=== PATIENT | female | born 1970 | race American Indian/Alaskan Native ===

== ENCOUNTER 2017-06-15 06:12 | Inpatient (IN) | payer OTHER ==
--- NOTE | 2017-06-11 12:37 | Anesthesia Consultation ---
Anesthesia Consult and Med Hx Date of service: 06/11/17 - Airway Anesthetic Teeth Evaluation: Good ROM Head & Neck: Adequate Mental/Hyoid Distance: Adequate Mallampati Class: Class II Intubation Access Assessment: Probably Good - Pulmonary Exam CTA: Yes - Cardiac Exam Cardiac Exam: RRR - Pre-Operative Health Status ASA Pre-Surgery Classification: ASA2 Proposed Anesthetic Plan: General - Pulmonary Hx Smoking: No Hx Asthma: Yes (INHALER PRN/LAST USE 06/2016) Hx Sleep Apnea: No - Cardiovascular System Hx Hypertension: Yes - Central Nervous System Hx Psychiatric Problems: No - Other Systems Hx Alcohol Use: No (SOCIALLY) Hx Substance Use: No Hx Cancer: No
[2017-06-11 13:25] LABS: Basophils % (Auto) 0.3 % (0.0-1.8); Hematocrit 35.3 % (30.3-42.9); Hemoglobin 11.5 gm/dl (10.1-14.3); Mean Corpuscular HGB Conc 33 % (30-34); Mean Corpuscular Hemoglobin 27 pg (28-32); Mean Corpuscular Volume 82 fl (79-97); Platelet Count 276 K/mm3 (140-440); Red Blood Count 4.29 M/mm3 (3.65-5.03); Red Cell Distribution Width 14.8 % (13.2-15.2); White Blood Count 5.9 K/mm3 (4.5-11.0)
[2017-06-11 13:42] LABS: Alanine Aminotransferase 11 units/L (7-56); Albumin 3.6 g/dL (3.9-5); Albumin/Globulin Ratio 1.2 %; Alkaline Phosphatase 77 units/L (35-129); Anion Gap 13 mmol/L; BUN/Creatinine Ratio 16; Blood Urea Nitrogen 11 mg/dL (7-17); Calcium 8.6 mg/dL (8.4-10.2); Carbon Dioxide 26 mmol/L (22-30); Chloride 104.4 mmol/L (98-107); Glucose 91 mg/dL (65-100); Potassium 3.8 mmol/L (3.6-5.0); Sodium 140 mmol/L (137-145); Total Protein 6.6 g/dL (6.3-8.2)
--- NOTE | 2017-06-14 21:29 | History and Physical Report ---
History of Present Illness Date of examination: 06/14/17 History of present illness: Patient has been reassessed/reevaluated. H&P has been reviewed. No interval changes. This is a 47 years old female who presents with menstrual disorder. The symptoms began 6-12 months ago. She complains of irregular menses, heavy bleeding, dysmenorrhea, clotting and history of fibroids, but denies mid-cycle spotting, history of ovarian cysts, history of thyroid disease, history of PCOS , history of bleeding disorder, lightheadedness, fatigue and cramping. Interval between menses is 25 days and 30 days. Menstrual flow lasts 4 days and > 7 days. The patient also presents with uterine fibroids. She complains of pelvic pressure, menorrhagia and intermenstrual bleeding, but denies abdominal pain, abdominal pressure and pelvic pain. Treatment tried to date includes myomectomy. Patient presently has a mirena Prior to today's visit the patient has had US of pelvis. Patient's symptoms when present disrupts her normal daily activities Patient desires definitive treatment Vital Signs: Patient Profile: 47 Years Old Female LMP: 05/31/2017 Height: 64.25 inches (163.19 cm) Weight: 205 pounds (93.18 kg) BMI: 34.91 Menstrual History: LMP (date): 05/31/2017 Past History : 1 Term Births: 1 Premature Births: 0 Living Children: 1 Para: 1 Mult. Births: 0 Prev : 1 Aborta: 0 Elect. Ab: 0 Spont. Ab: 0 Ectopics: 0 # 1 Delivery date: 10/01/2009 Weeks Gestation: 39 Delivery type: Anesthesia type: spinal Delivery location: [facility] weight: 7 Name: Spenser Anesthesia Complications: negative Abnormal PAP: negative Uterine Anomaly: negative LINNEA Exposure: negative Infertility: negative Infection History HIV Risk Eval: no Hep B Immunized: no TB exposure: no Personal hx. of genital herpes: no Partner hx. of genital herpes: no Hx of STD: chlamydia Current Allergies (reviewed today): MORPHINE (Critical) * DILAUDID (Critical) * OXYCOTIN (Critical) Past Medical History: Hypertension no hx of dvt while taking ocp Past Surgical History: right ankle, lap band (07/10), myomectomy (2009) Gastric Bypass: (02/02/2015) Family History Summary: General Comments - FH: No Family History of DVT/PE on OCP Social History: Patient is ongiong a divorce Patient is single Smoking History: Patient has never smoked. Risk Factors: Smoked Tobacco Use: Never smoker Smokeless Tobacco Use: Never Passive smoke exposure: no Drug use: no HIV high-risk behavior: no Alcohol use: yes Exercise: no Seatbelt use: 100 % Review of Systems General Complains of fatigue. Denies fever, chills, sweats, anorexia, weakness, malaise, weight loss and sleep disorder. Complains of menorrhagia, abnormal vaginal bleeding, pelvic pain and painful periods. Denies vaginal discharge, incontinence, dysuria, hematuria, urinary frequency, amenorrhea, genital sores, decreased libido, painful sex, urinary urgency, hot flashes, vaginal dryness, vaginal itching and vaginal odor. CV Denies chest pains, palpitations, syncope, dyspnea on exertion, orthopnea, PND and peripheral edema. Resp Denies cough, dyspnea at rest, excessive sputum, hemoptysis, wheezing and pleurisy. GI Denies nausea, vomiting, diarrhea, constipation, change in bowel habits, abdominal pain, melena, hematochezia, jaundice, gas/bloating, indigestion/ heartburn, dysphagia and odynophagia. Breast Denies left breast lump, right breast lump, nipple discharge, bloody discharge from nipple, breast pain, abnormal mammogram and breast enlargement. Psych Denies depression, anxiety, irritability and mood swings. Past History Past Medical History: other (See HPI) Past Surgical History: Other (See HPI) Social history: other (See HPI) Family history: other (See HPI) Medications and Allergies Allergies Allergy/AdvReac Type Severity Reaction Status Date / Time acetaminophen [From Percocet] Allergy Rash Verified 06/05/17 11:18 hydromorphone [From Dilaudid] Allergy Rash Verified 06/05/17 11:17 morphine Allergy Rash Verified 06/05/17 11:18 oxycodone [From Percocet] Allergy Rash Verified 06/05/17 11:18 Home Medications Medication Instructions Recorded Confirmed Last Taken Type Ascorbic Acid/Vitamin E/Biotin 1 each PO DAILY 06/05/17 06/05/17 06/13/17 History [Hair Skin Nails-Biotin Gummies] Mv-Mins/Folic Acid/Guarana/Caf 1 each PO DAILY 06/05/17 06/15/17 06/13/17 History [One Daily Tablet] Active Meds: Active Medications Celecoxib (Celebrex) 200 mg PO PREOP NR Stop: 06/15/17 23:59 Famotidine (Pepcid) 20 mg PO PREOP NR Stop: 06/15/17 23:59 Gabapentin (Neurontin) 300 mg PO PREOP NR Stop: 06/15/17 23:59 Sodium Chloride (Nacl 0.9% 1000 Ml) 1,000 mls @ 100 mls/hr IV DIRECT LYNN Midazolam HCl (Versed) 2 mg IV PREOP NR Stop: 06/15/17 23:59 Review of Systems Constitutional: other (See HPI) Exam - Physical Exam Narrative exam: HEENT: normocephalic, no lesions or deformities Skin no ulcers, xanthomas Chest: respiratory effort normal, clear to auscultation Breasts: no masses or nipple discharge CV: regular, normal S1-S2, no murmur, no rub, no gallop Abdomen: obese normal bowel sounds, soft, nontender, no HSM Well healed pfannenstiel scar Healed laparoscopy scars Musculoskeletal: grossly normal ROM in joints, no joint tenderness or muscle weakness Neuro: no gross anomalities Extremities: normal alignment, no joint enlargement, crepitus, masses or tenderness; normal tone and strength 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 Questions answered. Discussed with patient various medical, surgical and radiological therapies common for treatment including myomectomy hysterectomy and uterine artery embolization . She desires myomectomy. Discussed risks and benefits of laparotomy and robotic assisted approaches Patient desires robotic assisted myomectomy Discuss the risks of the surgery including infection, bleeding possibly heavy enough to require a blood transfusion, possible damage to bowel, bladder or ureter. Patient understands that there is a possibility that a hysterectomy maybe indicated for severe bleeding not resoved with conservative measures. Also discussed possible laparotomy. Her questions were answered. Patient understands and desires to proceed (2) Menometrorrhagia Current Visit: Yes Status: Acute Plan to address problem: Secondary to #1 (3) Hypertension Current Visit: Yes Status: Acute Qualifiers: Hypertension type: essential hypertension Qualified Code(s): I10 - Essential (primary) hypertension (4) Anxiety Current Visit: Yes Status: Chronic (5) BMI 34.0-34.9,adult Current Visit: Yes Status: Acute
[~2017-06-15 06:12] MED LIST: MARCAINE 0.25% INFILTRATI ONE; NACL 0.9% IR ONE; NACL 0.9% IV ONE; NACL BACTERIOSTATIC INFILTRATI ONE; Vasostrict IV ONE
[2017-06-15] MEDS: PEPCID PO NR ×2 (06:40→06:45)
[2017-06-15] MEDS ORDERED: VERSED IV NR (07:00)
[2017-06-15] MEDS ORDERED: NEURONTIN PO NR (07:00)
[2017-06-15] MEDS ORDERED: ZOFRAN IV NR (07:00)
[2017-06-15] MEDS ORDERED: NACL 0.9% 1000 ML 1,000 ML IV SCH (07:00)
[2017-06-15] MEDS ORDERED: Vasostrict ONE (07:02)
[2017-06-15] MEDS ORDERED: NACL 0.9% 100 ML ONE (07:02)
[2017-06-15] MEDS ORDERED: MARCAINE 0.25% INFILTRATI ONE (07:31)
[2017-06-15] MEDS ORDERED: XYLOCAINE MPF 2% ONE (07:32)
[2017-06-15] MEDS ORDERED: ZEMURON IV ONE (07:32)
[2017-06-15] MEDS ORDERED: DIPRIVAN 10 MG/ML IV ONE (07:33)
[2017-06-15] MEDS ORDERED: SUBLIMAZE ONE (07:33)
[2017-06-15] MEDS ORDERED: TRANSDERM-SCOP TD NR (08:00)
[2017-06-15] MEDS ORDERED: ACD-A 500 ML IV ONE (08:27)
[2017-06-15] MEDS ORDERED: NEOSPORIN GU IR ONE (08:30)
[2017-06-15] MEDS ORDERED: TORADOL IV PRN (08:39)
[2017-06-15] MEDS ORDERED: MORPHINE IV PRN (08:39)
--- NOTE | 2017-06-15 08:39 | Anesthesia Day of Surgery ---
Anesthesia Day of Surgery - Day of Surgery Patient Examined: Yes Patient H&P Reviewed: Yes Patient is NPO: Yes
[2017-06-15] MEDS ORDERED: DECADRON ONE (08:51)
[2017-06-15] MEDS ORDERED: ANCEF/STERILE WATER 2 GM/20 ML IV NR (09:00)
[2017-06-15] MEDS ORDERED: NEOSTIGMINE ONE (10:10)
[2017-06-15] MEDS ORDERED: ROBINUL ONE (10:10)
[2017-06-15] MEDS ORDERED: ZOFRAN ONE (10:10)
[2017-06-15] MEDS ORDERED: NACL 0.9% 1000 ML 1,000 ML ONE (10:14)
--- NOTE | 2017-06-15 10:42 | Operative Report ---
Operative Report Operative Report: Date of procedure: 06/15/2017 Pre-operative diagnosis: Symptomatic leiomyomata menorrhalgia pelvic pain and dysmenorrhea Post-operative diagnosis: Same plus pelvic adhesive disease and bilateral ovarian cysts Procedure name(s): Robotic-assisted myomectomy with lysis of adhesions and drainage of ovarian cysts bilaterally Surgeon: Flaco Moss MD Psych Sales Specialist: Eliana Dee Anesthesia: Gen. EBL: 50 mL Complications: None Findings: Uterus approximately 10 weeks in size with him the omental adhesions covering the fundus and posteriorly also had omental adhesions between both adnexa and the tubal adhesions posteriorly on the left bilateral hand cyst ovarian cyst the largest leiomyoma was some on the left posterior to her cervix also had small myomas serosa posteriorly and another right posterior myoma. Specimen(s): Myomas and left ovarian cyst wall Procedure: Patient taken operating room where general endotracheal anesthesia was induced difficulty. She was placed in dorsal lithotomy position prepped and draped in usual normal sterile fashion for robotic procedure. The cath was placed in urinary bladder without difficulty speculum placed in the vagina. A medium V care uterine manipulator was placed without any difficulty. Then attention was switched to the patient's abdomen. Supra-umbilical incision was made with a knife. Spread with a hemostat. A 10-12 Trocar was placed in this incision while lifting out anterior abdominal wall under direct visualization. Intra- abdominal cavity was entered without any evidence of internal organ damage. Patient was insufflated approximately 3 and half liters of CO2 gas. Patient's pelvic findings noted above. The patient was perceived to be a candidate for robotic procedure. On either side of the midline trocar placement approximately 8 cm the 8 mm robotic trocars was placed under direct visualization with no signs of internal organ damage. Psych Sales Specialist ports were placed on the right lower quadrant 2 fingerbreadths above the iliac crest 10-12 trocar. A [address] between the camera port and the right robotic arm trocar placed. At this time the da Abelardo robot was that on the patient's left side and normal fashion. At that time I my place under the operating luther. The multiple adhesions were taken down sharply and bluntly with attempt to restore to a normal anatomy. Pitressin was injected into the myoma posterior to the cervix also into the posterior FUNDAL myoma Pitressin was placed in the myometrium under each. Using the cutting the scissors the serosa was some in size over all the myomas myomas were bluntly and sharply taken out of its bed with good hemostasis additional myomas were found so serosa posteriorly left near the junction of the left fallopian tube and fundal on the right each taken out with good hemostasis. The bed where the posterior cervical myoma was removed and did enter into the vagina. This defect was closed with 0V lock Vicryl suture, with good hemostasis. The uterus was then copiously irrigated and found to be hemostatic and Interceed was placed in the posterior surgical sites to prevent future adhesions. The ureters were inspected and found to be functioning normally. All instruments were removed. THE large trocar defects were closed in layers using with 0 Vicryl and 4-0 Vicryl subcutaneously the smaller 8 mm defects were closed subcutaneously with 4 Vicryl. Patient tolerated procedure well and was awakened and operating room and comfortable recovery room in good condition.
[2017-06-15] MEDS ORDERED: SUBLIMAZE IV PRN (10:55)
--- NOTE | 2017-06-15 10:55 | Post Anesthesia Evaluation ---
- Post Anesthesia Evaluation Patient Participated: Yes Airway Patent: Yes Stable Respiratory Function: Yes Nausea/Vomiting: No Temp > 96.8F: Yes Pain Manageable: Yes Adequeate Hydration: Yes Anesthesia Complications: No Block Receding Appropriately: Not Applicable Patient on Ventilator: No
[2017-06-15] MEDS: SUBLIMAZE IV PRN ×2 (11:00→11:17)
[2017-06-15] MEDS ORDERED: NORCO 5/325 PO PRN (12:46)
[2017-06-15] MEDS: D5LR 1,000 ML IV SCH ×2 (13:30→21:35)
[2017-06-15] MEDS: NORCO 5/325 PO PRN ×3 (13:46→23:08)
[2017-06-15] MEDS: BENADRYL PO PRN ×2 (13:47→22:10)
[2017-06-15] MEDS ORDERED: ANCEF/NS 1 GM/50 ML 1 GM/50 ML BAG IV SCH (18:00)
[2017-06-15] MEDS: ceFAZolin 1 GM in NACL 0.9% 20 ML IV SCH (18:58)
[2017-06-15] MEDS: COLACE PO SCH (21:34)
--- NOTE | 2017-06-15 22:51 | Event Note ---
Date: 06/15/17 Day of surgery. Discuss operative findings with patient and questions answered. Patient without fever. . Good urine output. patient complaining of shoulder pain will treat with Narco patient has tolerated it well. We will continue routine postoperative care.
[2017-06-16] MEDS: ceFAZolin 1 GM in NACL 0.9% 20 ML IV SCH (02:35)
[2017-06-16] MEDS: NORCO 5/325 PO PRN ×2 (02:38→10:00)
[2017-06-16] MEDS: BENADRYL PO PRN ×2 (04:10→10:01)
[2017-06-16 04:50] LABS: Hematocrit 32.2 % (30.3-42.9); Hemoglobin 10.6 gm/dl (10.1-14.3)
[2017-06-16] MEDS: COLACE PO SCH (10:01)
--- NOTE | 2017-06-16 11:25 | Discharge Summary ---
Providers - Providers Date of Admission: 06/15/17 10:47 Date of discharge: 06/16/17 Attending physician: JACKELYN CUMMINGS Hospitalization Condition: Good Procedures: Robotic-assisted myomectomy with lysis of adhesions and drainage of ovarian cysts bilaterally Hospital course: POD#1, no complaints, no bleeding, desires d/c home Disposition: DC-01 TO HOME OR SELFCARE - Discharge Diagnoses (1) S/P myomectomy Status: Acute Core Measure Documentation - Palliative Care Palliative Care/ Comfort Measures: Not Applicable - Core Measures Any of the following diagnoses?: none Exam - Constitutional Vitals: Temp Pulse Resp BP Pulse Ox 98.0 F 72 20 115/62 98 06/16/17 09:10 06/16/17 09:10 06/16/17 09:10 06/16/17 09:10 06/16/17 09:10 General appearance: Present: no acute distress - Respiratory Respiratory effort: normal Respiratory: negative: CTA - Cardiovascular Rhythm: regular - Extremities Extremities: no ischemia, No edema - Abdominal General gastrointestinal: Present: soft, non-tender, non-distended, normal bowel sounds - Integumentary Integumentary: Present: clear, warm, dry (incisions c/d/i) - Psychiatric Psychiatric: appropriate mood/affect Plan Activity: other (no sex, no driving, ambulate on property ~1mile a day. Void frequently, use you incentive spirometer ~ every hour while awake. ) Weight Bearing Status: Full Weight Bearing Diet: regular (Drink ~100oz water a day) Wound: open to air, keep clean and dry Special Instructions: no heavy lifting (>25#) Follow up with: DON CHUNG [Other] - 7 Days JACKELYN CUMMINGS MD [Staff Physician] - (As scheduled) Prescriptions: diphenhydrAMINE [Benadryl CAP] 50 mg PO QHS PRN #14 capsule PRN Reason: Itching Ferrous Sulfate [Feosol 325 MG tab] 325 mg PO BID #60 tablet HYDROcodone/APAP 5-325 [[place] 5-325 mg TAB] 1 - 2 each PO Q6H PRN #30 tablet PRN Reason: Pain
[2017-06-16] MEDS ORDERED: Fluarix Quad 2017-2018(36 MOS+ IM ONE (12:00)
[2017-06-16 12:07] VITALS: BP 120/53
== END 2017-06-16 13:00 | disposition home or self-care (01) | DRG 743 ==
LOC: OR 06:12 → OB 10:47
PROVIDERS: ADMIT Obstetrics & Gynecology; ATTEND Obstetrics & Gynecology
PROC: 0UB93ZZ Excision of Uterus, Percutaneous Approach (ICD-10-PCS; 2017-06-15)
PROC: 3E0234Z Introduction of Serum, Toxoid and Vaccine into Muscle, Percutaneous Approach (ICD-10-PCS; principal; 2017-06-16)
DX: N92.0 Excessive and frequent menstruation with regular cycle (principal); D25.1 Intramural leiomyoma of uterus; I10 Essential (primary) hypertension; J45.909 Unspecified asthma, uncomplicated; F41.9 Anxiety disorder, unspecified; Z98.890 Other specified postprocedural states; Z68.34 Body mass index [BMI] 34.0-34.9, adult; Z88.1 Allergy status to other antibiotic agents; Z88.5 Allergy status to narcotic agent; Z23 Encounter for immunization
CPT/HCPCS: 36415; 80053; 84703; 85014; 85018; 85025; 86850; 86900; 86901; 88305; 90686; A4217; C1765; J0690; J1100; J1885; J2250; J2405; J2704; J2710; J3010; J7030; J7121

== ENCOUNTER 2021-01-20 07:35 | Observation (INO) | payer BC, OTHER ==
[2021-01-18 12:22] LABS: BUN/Creatinine Ratio 13; Blood Urea Nitrogen 12 mg/dL (7-17); Calcium 8.5 mg/dL (8.4-10.2); Hemolysis Index 13
[2021-01-18 12:40] LABS: Eosinophils % (Auto) 0.7 % (0.0-4.3); Hematocrit 37.8 % (30.3-42.9); Hemoglobin 12.2 gm/dl (10.1-14.3); Lymphocytes # (Auto) 1.9 K/mm3 (1.2-5.4); Lymphocytes % (Auto) 37.8 % (13.4-35.0); Mean Corpuscular HGB Conc 32 % (30-34); Mean Corpuscular Volume 84 fl (79-97); Monocytes # (Auto) 0.3 K/mm3 (0.0-0.8); Monocytes % (Auto) 6.5 % (0.0-7.3); Platelet Count 270 K/mm3 (140-440); Red Blood Count 4.52 M/mm3 (3.65-5.03); Red Cell Distribution Width 15.3 % (13.2-15.2)
--- NOTE | 2021-01-18 14:59 | Anesthesia Consultation ---
Anesthesia Consult and Med Hx Date of service: 01/20/21 - Airway Anesthetic Teeth Evaluation: Good ROM Head & Neck: Adequate Mental/Hyoid Distance: Adequate Mallampati Class: Class II Intubation Access Assessment: Probably Good - Pulmonary Exam CTA: Yes - Cardiac Exam Cardiac Exam: RRR - Pre-Operative Health Status ASA Pre-Surgery Classification: ASA2 Proposed Anesthetic Plan: General Nerve Block: TAP - Pulmonary Hx Smoking: No Hx Asthma: Yes (no inhaler use in >1yr) Hx Respiratory Symptoms: No - Cardiovascular System Hx Hypertension: No Hx Heart Attack/AMI: No Hx Percutaneous Transluminal Coronary Angioplasty (PTCA): No - Central Nervous System CVA: No - Endocrine Hx Renal Disease: No Hx Liver Disease: No Hx Insulin Dependent Diabetes: No Hx Non-Insulin Dependent Diabetes: No Hx Thyroid Disease: No - Other Systems Hx Obesity: Yes (BMI 37) - Additional Comments Anesthesia Medical History Comments: No hx anesthetic complications. Reports significant itching with opioid pain medications which is improved with benadryl.
--- NOTE | 2021-01-18 17:06 | History and Physical Report ---
History of Present Illness Date of examination: 01/12/21 History of present illness: Patient has been reassessed/reevaluated. H&P has been reviewed. No interval changes. This is a 50 years old female who presents with uterine fibroids and menstrual disorder. She complains of irregular menses, heavy bleeding, dysmenorrhea and cramping, She complains of pelvic pain, pelvic pressure, menorrhagia and intermenstrual bleeding, but denies abdominal pain and abdominal pressure. Treatment tried to date includes control pills, myomectomy and NSAIDs. Prior to today's visit the patient has had US of pelvis.. Interval between menses is 15-20 days. Patient's symptoms when present disrupts her normal daily activities Conservative therapies have failed. Patient desires definitive treatment Vital Signs: Patient Profile: 50 Years Old Female LMP: 12/28/2020 Height: 64.25 inches (163.19 cm) Weight: 220 pounds BMI: 37.47 Temp: 97.9 degrees F BP sittin / 70 (left arm) Menstrual History: LMP (date): 12/28/2020 LMP - Character: normal, Mirena Past History : 1 Term Births: 1 Premature Births: 0 Living Children: 1 Para: 1 Mult. Births: 0 Prev : 1 Aborta: 0 Elect. Ab: 0 Spont. 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 of genital herpes: no Partner hx. of genital herpes: no Hx of STD: chlamydia Current Allergies (reviewed today): MORPHINE (Critical) * DILAUDID (Critical) * OXYCOTIN (Mild) Past Medical History: Hypertension no hx of dvt while taking ocp Fibroids Past Surgical History: Right ankle, lap band (07/10), myomectomy (2009) Gastric Bypass: (02/02/2015) Robotic Myomectomy with ELZBIETA and ovarian cystectomy(06/15/2017) Social History: Smoking History: Patient has never smoked. Risk Factors: Smoked Tobacco Use: Never smoker Smokeless Tobacco Use: Never Passive Smoke Exposure: no Seatbelt Use: 100 % Review of Systems General Complains of fatigue. Denies fever, chills, sweats, anorexia, weakness, malaise, weight loss and sleep disorder. Complains of menorrhagia, pelvic pain, painful periods and painful sex. Denies vaginal discharge, incontinence, dysuria, hematuria, urinary frequency, amenorrhea, abnormal vaginal bleeding, genital sores, decreased libido, urinary urgency, hot flashes, vaginal dryness, vaginal itching and v aginal odor. CV Denies chest pains, palpitations, syncope, dyspnea on exertion, orthopnea, PND and peripheral edema. Resp Denies cough, dyspnea at rest, excessive sputum, hemoptysis, wheezing and pleurisy. GI Denies nausea, vomiting, diarrhea, constipation, change in bowel habits, abdominal pain, melena, hematochezia, jaundice, gas/bloating, indigestion/heartburn, dysphagia and odynophagia. Breast Denies left breast lump, right breast lump, nipple discharge, bloody discha rge from nipple, breast pain, abnormal mammogram and breast enlargement. Psych Complains of anxiety. Denies depression, irritability and mood swings. Past History Past Medical History: hypertension, other (SEE HPI FOR DETAILS) Past Surgical History: Other (SEE HPI FOR DETAILS) Social history: full code, other (SEE HPI FOR DETAILS) Family history: other (SEE HPI FOR DETAILS) Medications and Allergies Allergies Allergy/AdvReac Type Severity Reaction Status Date / Time hydromorphone [From Dilaudid] Allergy Itching Verified 01/20/21 10:52 morphine Allergy Itching Verified 01/20/21 10:52 oxycodone [From Percocet] Allergy Itching Verified 01/20/21 10:52 Home Medications Medication Instructions Recorded Confirmed Last Taken Type Mv-Mins/Folic Acid/Guarana/Caf 1 each PO DAILY 12/11/1506/15/17 01/19/21 09:00 History [One Daily Tablet] Airborne Elderberry Gummy 2 dose PO DAILY 01/11/21 01/20/21 01/19/21 09:00 History Albuterol Mdi (or & Nicu Only) 2 puff IH PRN PRN 01/11/21 01/11/21 Unknown History [ProAir HFA Inhaler] Omeprazole 20 mg PO PRN 01/11/21 01/20/21 01/20/21 07:00 History Active Meds: Active Medications Acetaminophen (Acetaminophen 500 Mg Tab) 1,000 mg PO PREOP LYNN Stop: 01/20/21 21:00 Celecoxib (Celecoxib 200 Mg Cap) 200 mg PO PREOP NR Stop: 01/20/21 21:00 Fentanyl (Fentanyl 100 Mcg/2 Ml Inj) 100 mcg IV ONCE PRN PRN Reason: sedation for nerve block Stop: 01/20/21 21:00 Gabapentin (Gabapentin 300 Mg Cap) 300 mg PO PREOP NR Stop: 01/20/21 21:00 Cefazolin Sodium (Ancef/Sterile Water 2 Gm/20 Ml) 2 gm in 20 mls @ 80 mls/hr IV PREOP NR; Protocol Stop: 01/20/21 23:59 Lactated Ringer's (Lactated Ringers) 1,000 mls @ 100 mls/hr IV DIRECT LYNN Stop: 01/20/21 23:59 Midazolam HCl (Midazolam 2 Mg/2 Ml Inj) 2 mg IV PREOP NR Stop: 01/20/21 21:00 Scopolamine (Scopolamine Transdermal Patch 72 Hr) 1 each TD PREOP NR Stop: 01/20/21 21:00 Review of Systems Constitutional: other (SEE HPI FOR DETAILS) Exam - Physical Exam Narrative exam: HEENT: normocephalic, no lesions or deformities Skin no ulcers, xanthomas Chest: respiratory effort normal, clear to auscultation CV: regular, normal S1-S2, no murmur, no rub, no gallop Abdomen: obese normal bowel sounds, soft,, no HSM Well healed pfannenstiel scar Tender left lower quadrant no rebound Neuro: no gross anomalities Extremities: no clubbing, cyanosis, or edema SYSTEMS 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 ANALYST Exams Vulva/Vagina: No lesions, normal BUS, normal rugae Cervix: No lesions; no cervical motion tenderness IUD string seen short Uterus: Enlarged uterus 12 to 14 weeks size Adnexae: unable to palpate due to obesity Rectovaginal: exam defered - Constitutional Vitals: Temp Pulse Resp BP Pulse Ox 98.4 F 65 20 131/82 99 01/18/21 11:45 01/18/21 11:45 01/18/21 11:45 01/18/21 11:45 01/18/21 11:45 Results - Labs CBC & Chem 7: 01/18/21 06:00 01/18/21 06:00 Labs: Abnormal lab results 01/18/21 Range/Units 06:00 MCH 27 L (28-32) pg RDW 15.3 H (13.2-15.2) % Lymph % (Auto) 37.8 H (13.4-35.0) % Assessment and Plan - Patient Problems (1) Intramural leiomyoma of uterus Current Visit: No Status: Acute Plan to address problem: Diagnosis explained to patient . Questions answered. Discussed with patient various medical, surgical and radiological therapies common for treatment including expectant management, myomectomy hysterectomy and uterine artery embolization Conservative therapies have failed. Patient desires definitive treatment Patient desires hysterectomy Discussed risks and benefits of laparotomy, laparoscopy, vaginal and robotic assisted approaches for hysterectomies Patient desires robotic assisted total hysterectomy. Patient desires robotic assisted total hysterectomy. Consent reviewed and signed . The risks and alternatives for this surgery were reviewed with the patient. Discuss the risks of the surgery including infection, bleeding possibly heavy enough to require a blood transfusion, possible damage to bowel, bladder or ureter. Patient understand that this surgery with make her sterile.Patient understands if her ovaries are removed she will become menopausal. Also if unable to complete robitcally a laparotomy may be required. Patient understands and desires to proceed. (2) Menometrorrhagia Current Visit: No Status: Acute Plan to address problem: Probably secondary to # 1 (3) Hypertension Current Visit: No Status: Chronic Qualifiers: Hypertension type: primary hypertension Qualified Code(s): I10 - Essential (primary) hypertension (4) Anxiety Current Visit: No Status: Chronic (5) Adult BMI 37.0-37.9 kg/sq m Current Visit: No Status: Acute Plan to address problem: Patient has been advised that obesity does increase risks of surgical and risks of post operative complications. (6) Pelvic adhesions Current Visit: No Status: Acute Plan to address problem: Patient understands her risks of adjacent organ damage is increased due to her previous surgery(ies)
[~2021-01-20 07:35] MED LIST changes: +ACETAMINOPHEN 500 MG TAB PO SCH; +CELECOXIB 200 MG CAP PO NR; +GABAPENTIN 300 MG CAP PO NR; +LACTATED RINGERS 1,000 ML IV SCH; -MARCAINE 0.25% INFILTRATI ONE; +MIDAZOLAM 2 MG/2 ML INJ IV NR; -NACL 0.9% IR ONE; -NACL 0.9% IV ONE; -NACL BACTERIOSTATIC INFILTRATI ONE; +SCOPOLAMINE TRANSDERMAL PATCH 72 HR TD NR; -Vasostrict IV ONE; +ceFAZolin/Water 2 GM/20 ML 2 GM/20 ML SYRINGE IV NR; +fentaNYL 100 MCG/2 ML INJ IV PRN
[2021-01-20] MEDS ORDERED: BUPIVACAINE-EPINEPHRINE/PF 0.25%-1:200,000 (30 ML) VIAL INFILTRATI ONE ×2 (08:20→11:43)
[2021-01-20] MEDS ORDERED: dexAMETHasone 4 MG/ML VIAL ONE (08:20)
[2021-01-20] MEDS ORDERED: NEOSTIGMINE 10MG/10 ML INJ MDV ONE (09:00)
[2021-01-20] MEDS ORDERED: GLYCOPYRROLATE 0.4 MG/2 ML INJ ONE (09:00)
[2021-01-20] MEDS ORDERED: diphenhydrAMINE 50 MG/ML VIAL ONE (09:00)
[2021-01-20] MEDS ORDERED: LIDOCAINE MPF (2%) 20 MG/1 ML VIAL 5 ML ONE (09:00)
[2021-01-20] MEDS ORDERED: HYDROmorphone 1 MG/1 ML INJ ONE (09:15)
[2021-01-20] MEDS ORDERED: dexAMETHasone 20 MG/5 ML VIAL ONE (09:15)
[2021-01-20] MEDS ORDERED: ROCURONIUM 50 MG/5 ML INJ IV ONE (09:15)
[2021-01-20] MEDS ORDERED: ONDANSETRON 4 MG/2 ML INJ ONE (09:15)
[2021-01-20] MEDS ORDERED: propofoL 200 MG/20 ML VIAL IV ONE (09:16)
[2021-01-20] MEDS ORDERED: fentaNYL 100 MCG/2 ML INJ ONE (09:16)
[2021-01-20] MEDS ORDERED: ONDANSETRON 4 MG/2 ML INJ IV PRN ×2 (10:27→17:30)
[2021-01-20] MEDS ORDERED: HYDROmorphone 1 MG/1 ML INJ IV PRN (10:27)
--- NOTE | 2021-01-20 10:27 | Anesthesia Day of Surgery ---
Anesthesia Day of Surgery - Day of Surgery Patient Examined: Yes Patient H&P Reviewed: Yes Patient is NPO: Yes
[2021-01-20] MEDS ORDERED: NEOMY 40 MG/POLYMYXIN B 200,000 UNITS/ML (GU) AMPULE IR ONE ×2 (11:43→13:28)
[2021-01-20] MEDS ORDERED: SODIUM CHLORIDE 0.9% IRR 1,500 ML BOTTLE IR ONE (13:29)
[2021-01-20] MEDS ORDERED: SODIUM CHLORIDE 0.9% IRRIG SOLN 2000 ML IR ONE (13:29)
--- NOTE | 2021-01-20 15:55 | Operative Report ---
Operative Report Operative Report: Date of procedure: January 20, 2021 Pre-operative diagnosis: Symptomatic leiomyomata Post-operative diagnosis: Same plus pelvic adhesive disease Procedure name(s):Robotic Assisted Total Hysterectomy with right salpingo- oophorectomy, left salpingectomy and lysis of adhesions Surgeon: Flaco Moss MD Deputy County Clerk: Ellie Saldana, certified health education specialist Anesthesia: General EBL: 50 cc Complications: None Findings: Patient with uterus approximately 12 to 14 weeks in size with multiple leiomyomata dense adhesions between the right adnexa and the uterus with the hydrosalpinx and ovarian mass approximately 5cm in diameter. Adhesions to the left adnexa was also noted and adhesions anterior uterus to the anterior abdominal wall Specimen(s): Uterus with cervix and and right adnexa Procedure: Patient was brought to the operating room where general anesthesia was induced without difficulty. Patient was placed in the dorsal lithotomy position. Prepped and draped in the usual sterile manner for robotic procedure. Downey catheter was placed without difficulty. Speculum was placed in the vagina. A medium V-Care Uterine manipulator was placed without difficulty. Attention was now switched to the patient's abdomen. A vertical supra-umbilicus incision was made with a scalpel. A 10-12 trocar was placed in this incision under direct visualization. Intra-abdominal placement was verified with no evidence of internal organ damage. The patient pelvic findings were noted as above. It was determined that the patient was a candidate for robotic procedure. On both sides the umbilical incision at about 8 cm, incisions were made for robotic trocars. Each robotic trocar was placed under direct visualization with no evidence of internal organ damage. One 5 mm trocar was placed 2 fingerbreadths above the right iliac crest. A 5 mm camera was placed in the right lower qu adrant trocar, the 10-12 trocar was removed and a Gamaliel Tavares laparoscopic port closure device was placed through this incision under direct visualization with no evidence of internal organ damage. The camera was then replaced into this port. At this time the patient was placed in extreme Trendelenburg. The da Abelardo robot was then docked on the patient's left side. The trocars connected to the robot appropriately robotic instruments were placed under direct visualization no evidence of internal organ damage.. At this time I took my place under the robotic operating luther. The patient's pelvic findings as noted above, due to the dense adhesions between the uterine fundus and the right adnexa and the large ovarian cyst decision was made to do a right salpingooophorectomy. Starting on the patient's right side the ureter was identified and found to be out of the operative field. The right ovarian vessels were identified, using the robotic vessel sealer ovarian vessels were cauterized and cut. The adhesions under the right adnexa were cauterized and cut. Next the right round ligament was cauterized and cut. The broad ligament was then opened. The bladder flap was formed anteriorly through some of the scar tissue.. The posterior broad ligament was then excised. The uterine vessels were skeletonized. The ureter was clearly seen out of the operative field. The bladder was pushed away from the anterior uterus. The right uterine vessels were then cauterized and cut. Attention was then switched to the patient's left side, where the salpingectomy performed by started distal in with the vessel sealer cauterized and cut under the mesosalpinx and moving medially until the utero-ovarian complex was reached. The utero-ovarian complex was then cauterized and cut followed by cauterizing cutting the left round ligament and opening up the left broad ligament. This was followed by isolating the uterine vessels cauterized and cutting and completing the bladder flap from the left side. At this time thuterus was appearing very cyanotic. After inspecting the bladder flap to insured no evidence of bladder injury, the colpotomy was then started. Incision started at 6:00 until the V-Care could be seen. This incision was extended from 6:00 to 9:00. Then from 6:00 to 3:00. Then from 9:00 to 12:00. This incision was extended from 3:00 to 12:00. At this time colpotomy was complete with no evidence of adjacent organ damage. The social work assistant remove the uterus from through the colpotomy site. The vaginal cuff was irrigated and cauterized and found to be hemostatic. The cuff was closed with roboticly using 0 V- Lock suture. This closure was hemostatic after irrigation and Bovie. All pedicles were inspected and found to be hemostatic. The ureters were identified bilaterally and found to be functioning normal. The patient had clear urine in the Downey catheter with no evidence of mixture with blood. Bing was placed on the cuff and pedicles for postoperative hemostasis . All instruments were then removed. The large trocar sites were closed in layers 2-0 Vicryl and 4-0 Monocryl. The smaller incisions were closed subcuticularly with 4-0 Monocryl. Dermabond was placed over the skin incisions. The patient tolerated procedure well. She was awakened in the operating room and accompanied to the recovery room in good condition.
--- NOTE | 2021-01-20 16:25 | Post Anesthesia Evaluation ---
- Post Anesthesia Evaluation Patient Participated: Yes Airway Patent: Yes Stable Respiratory Function: Yes Nausea/Vomiting: No Temp > 96.8F: Yes Pain Manageable: Yes Adequeate Hydration: Yes Anesthesia Complications: No
[2021-01-20] MEDS ORDERED: IBUPROFEN 800 MG TAB PO PRN (17:30)
[2021-01-20] MEDS ORDERED: ACETAMINOPHEN 325 MG TAB PO PRN (17:30)
[2021-01-20] MEDS ORDERED: ALBUTEROL 8.5 GM MDI INHALATION IH PRN (17:30)
[2021-01-20] MEDS ORDERED: HYDROcodone/ACETAMINOPHEN 5-325 MG TAB PO PRN (17:30)
[2021-01-20] MEDS ORDERED: NON-FORMULARY EACH (Omeprazole 20 MG) PO SCH (17:30)
[2021-01-20] MEDS ORDERED: D5W/LACTATED RINGERS 1,000 ML IV SCH (17:30)
[2021-01-20] MEDS ORDERED: ALBUTEROL 2.5 MG/3 ML NEBU IH PRN (17:44)
[2021-01-20] MEDS ORDERED: PANTOPRAZOLE 20 MG TAB PO PRN (17:50)
[2021-01-20] MEDS ORDERED: ceFAZolin/NS 1 GM/50 ML 1 GM/50 ML BAG IV ONE (17:51)
--- NOTE | 2021-01-20 18:56 | Event Note ---
Date: 01/20/21 Day of surgery. Discuss operative findings with patient and questions answered. Patient without fever. Will ambulate in halls this evening. Patient has not voided yet postop. Patient complains of hunger. We have give diet. We will continue routine postoperative care. Patient states she desires to go home this evening if stable.
[2021-01-20] MEDS ORDERED: ceFAZolin/NS 1 GM/50 ML 1 GM/50 ML BAG IV SCH (20:00)
--- NOTE | 2021-01-20 21:01 | Short Stay Summary ---
Short Stay Documentation - History Past Medical History: hypertension, other (SEE HPI FOR DETAILS) Past Surgical History: Other (SEE HPI FOR DETAILS) Social history: full code, other (SEE HPI FOR DETAILS) - Allergies and Medications Current Medications: Allergies hydromorphone [From Dilaudid] Allergy (Verified 01/20/21 10:52) Itching morphine Allergy (Verified 01/20/21 10:52) Itching oxycodone [From Percocet] Allergy (Verified 01/20/21 10:52) Itching Home Medications Medication Instructions Recorded Confirmed Last Taken Type Mv-Mins/Folic Acid/Guarana/Caf 1 each PO DAILY 06/05/17 01/20/21 01/19/21 09:00 History [One Daily Tablet] Airborne Elderberry Gummy 2 dose PO DAILY 01/11/21 01/20/21 01/19/21 09:00 History Albuterol Mdi (or & Nicu Only) 2 puff IH PRN PRN 01/11/21 01/11/21 Unknown History [ProAir HFA Inhaler] Omeprazole 20 mg PO PRN 01/11/21 01/20/21 01/20/21 07:00 History Ferrous Sulfate [Feosol 325 MG tab] 325 mg PO BID #60 tablet 01/20/21 Unknown Rx HYDROcodone/APAP 5-325 [Volga 1 each PO Q6H PRN #20 tablet 01/20/21 Unknown Rx 5/325] Active Medications Acetaminophen (Acetaminophen 325 Mg Tab) 650 mg PO Q4H PRN PRN Reason: Pain MILD(1-3)/Fever >100.5/MORENO Hydrocodone Bitart/Acetaminophen (Hydrocodone/Acetaminophen 5-325 Mg Tab) 2 each PO Q6H PRN PRN Reason: Pain, Moderate (4-6) Last Admin: 01/20/21 18:21 Dose: 2 each Documented by: Albuterol (Albuterol 2.5 Mg/3 Ml Nebu) 2.5 mg IH Q4H PRN PRN Reason: Shortness Of Breath Docusate Sodium (Docusate Sodium 100 Mg Cap) 100 mg PO BID LYNN Dextrose/Lactated Ringer's (D5lr) 1,000 mls @ 125 mls/hr IV DIRECT LYNN Cefazolin Sodium (Ancef/Ns 1 Gm/50 Ml) 1 gm in 50 mls @ 100 mls/hr IV Q8H [facility]; Protocol Stop: 01/21/21 04:29 Last Admin: 01/20/21 20:01 Dose: 100 mls/hr Documented by: Ibuprofen (Ibuprofen 800 Mg Tab) 800 mg PO Q8H PRN PRN Reason: Pain, Moderate (4-6) Ondansetron HCl (Ondansetron 4 Mg/2 Ml Inj) 4 mg IV Q8H PRN PRN Reason: Nausea And Vomiting Pantoprazole Sodium (Pantoprazole 20 Mg Tab) 20 mg PO QDAY PRN PRN Reason: GERD, Indigestion - Physical exam General appearance: no acute distress Integumentary: no rash HEENT: Atraumatic Lungs: Normal air movement Breasts: deferred Heart: Regular rate Gastrointestinal: tenderness (Appropriately day of surgery), distended (Appropriate for robotic surgery), other (Incisions intact with no evidence of infection) Female Genitourinary: normal Rectal Exam: deferred - Brief post op/procedure progress note Date of procedure: 01/20/21 (See dictated operative note for details) - Hospital course Hospital course: Patient was admitted underwent the above him procedure without any complications. Patient was admitted and underwent above procedure without complications. Her post operative extended recovery observation course was benign she was afebrile throughout. Patient had no orthostatic symptoms. Patient was tolerating regular diet and voiding without difficulty at time of discharge. Patient incision was healing well without evidence of infection. Patient will be discharged with follow-up in office in 1-2 weeks for postop check - Disposition Condition at discharge: Good Disposition: DC-01 TO HOME OR SELFCARE - Discharge Diagnoses (1) Status post robot-assisted surgical procedure Status: Acute (2) S/P hysterectomy Status: Acute (3) Intramural leiomyoma of uterus Status: Acute (4) Menometrorrhagia Status: Acute (5) Hypertension Status: Chronic Qualifiers: Hypertension type: primary hypertension Qualified Code(s): I10 - Essential (primary) hypertension (6) Anxiety Status: Chronic (7) Adult BMI 37.0-37.9 kg/sq m Status: Acute (8) Pelvic adhesions Status: Acute Short Stay Discharge Plan Activity: advance as tolerated Diet: regular Wound: open to air Additional Instructions: Patient to call office for any fever, chills, nausea, vomiting or pain not controlled by pain medication. Follow up with: MAHAD CARDONA MD [Primary Care Provider] - 7 Days Prescriptions: Ferrous Sulfate [Feosol 325 MG tab] 325 mg PO BID #60 tablet HYDROcodone/APAP 5-325 [Volga 5/325] 1 each PO Q6H PRN #20 tablet PRN Reason: Pain
[2021-01-20] MEDS ORDERED: DOCUSATE SODIUM 100 MG CAP PO SCH (22:00)
[2021-01-20 22:19] VITALS: BP 130/68
== END 2021-01-20 21:57 | disposition home or self-care (01) ==
LOC: OR 07:35 → OB 15:49
PROVIDERS: ADMIT Obstetrics & Gynecology; ATTEND Obstetrics & Gynecology
DX: D25.1 Intramural leiomyoma of uterus (principal); Z20.822 Contact with and (suspected) exposure to COVID-19; I10 Essential (primary) hypertension; F41.9 Anxiety disorder, unspecified; N73.6 Female pelvic peritoneal adhesions (postinfective); N92.1 Excessive and frequent menstruation with irregular cycle; Z98.890 Other specified postprocedural states; Z68.37 Body mass index [BMI] 37.0-37.9, adult; Z90.710 Acquired absence of both cervix and uterus; Z98.84 Bariatric surgery status; Z98.891 History of uterine scar from previous surgery; Z79.899 Other long term (current) drug therapy
CPT/HCPCS: 36415; 58573; 64450; 80048; 84703; 85025; 86850; 86900; 86901; 88307; 96365; A4217; G0378; J0690; J1100; J1170; J1200; J2250; J2405; J2704; J2710; J3010; J7120; S2900; U0003